=== PATIENT | male | born 1950 | race Caucasian/White ===

== ENCOUNTER 2018-07-12 09:47 | Outpatient (CLI) | payer BC ==
--- NOTE | 2018-07-12 11:59 | ULT ---
ULTRASOUND TESTICULAR WITH DOPPLER: HISTORY: Testicular pain. COMPARISON: None. FINDINGS: The testicular echotexture is normal bilaterally. Adequate vascular flow to both testicles. Flow is symmetric. No testicular mass. Small left-sided varicocele. Epididymi appear normal. The left testicle measures 3.3 x 4.4 x 2.2 cm and the right testicle measures 2.6 x 3 x 1.3 cm. IMPRESSION: 1. Small left varicocele. 2. No testicular mass. 3. Normal vascular flow to both testicles. POS: [facility]
== END 2018-07-12 09:48 | disposition home or self-care (01) ==
LOC: SCSULT 09:47
PROVIDERS: ATTEND Urology
DX: N50.82 Scrotal pain (principal); I86.1 Scrotal varices
CPT/HCPCS: 76870; 93976

== ENCOUNTER 2018-10-03 10:28 | Outpatient (CLI) | payer BC ==
--- NOTE | 2018-10-03 17:34 | CT ---
CT abdomen and pelvis noncontrast HISTORY: Right flank pain. FINDINGS: No comparison. Each renal collecting system, ureter, and urinary bladder are decompressed w ithout stone apparent. Lack of contrast limits evaluation for other abnormalities. A 1.0 cm hyperdense exophytic cyst projec ts posteriorly from the superior pole left kidney. Mild aortic calcification. Degenerative changes lumbar spine. IMPRESSION: No CT evidence of urinary tract obstruction or calcification. Atherosclerosis.
== END 2018-10-03 10:29 | disposition home or self-care (01) ==
LOC: SCSCT 10:28
PROVIDERS: ATTEND Family Medicine
DX: R10.9 Unspecified abdominal pain (principal); I70.0 Atherosclerosis of aorta
CPT/HCPCS: 74176